=== PATIENT | female | born 1965 | race Caucasian/White ===

== ENCOUNTER 2016-06-28 19:19 | Emergency (ER) | payer BC ==
[~2016-06-28] VITALS: Ht 162.5 cm; Wt 113.4 kg
[~2016-06-28 19:19] MED LIST: ACCUNEB 0.0.63 MG/3 INH; ATIVAN1 MG PO; CATAFLAM50 MG PO; CLARITIN10 MG PO; DAYPRO600 M1 PO; FIORICET 325 MG1 TAB PO; FLEXERIL10 MG PO; FLEXERIL5 MG PO; FLONASE 0.05% 121 EA NAS; HYDRODIURIL25 MG PO; KEFLEX500 MG PO; MEDROL DOSEPAK4 MG PO; MOTRIN600 MG PO; MOTRIN800 MG PO; MUCINEX D 12001 TER PO; NKHM; PREDNICOT20 MG PO; ROBITUSSIN DM120 ML PO; TRAMADOL HCL50 MG PO; VIBRAMYCIN100 MG PO; ZYRTEC5 MG PO
[2016-06-28 19:33] VITALS: BP 177/86
[2016-06-28] MEDS ORDERED: VIBRAMYCIN100 MG PO (20:54)
[2016-06-28] MEDS ORDERED: MEDROL DOSEPAK4 MG PO (20:54)
[2016-06-28] MEDS ORDERED: VENTOLIN 02.5 MG/3 M INH (21:12)
== END 2016-06-28 21:07 | disposition home or self-care (01) ==
LOC: ED 19:19
DX: J40 Bronchitis, not specified as acute or chronic (principal); J45.909 Unspecified asthma, uncomplicated; Z88.1 Allergy status to other antibiotic agents; Z88.8 Allergy status to other drugs, medicaments and biological substances

== ENCOUNTER → 2016-08-12 | Outpatient (CLI) | payer BC ==
[~2016-08-12] MED LIST changes: +VENTOLIN 02.5 MG/3 M INH
== END | disposition home or self-care (01) ==
LOC: CARD 07-02 14:00
DX: I07.1 Rheumatic tricuspid insufficiency (principal); R01.1 Cardiac murmur, unspecified

== ENCOUNTER → 2016-08-28 | Outpatient (CLI) | payer BC | END | disposition home or self-care (01) | LOC: ORTHO 03:46 | DX: M18.9 Osteoarthritis of first carpometacarpal joint, unspecified (principal) ==

== ENCOUNTER 2017-02-04 23:23 | Emergency (ER) | payer OTHER ==
[~2017-02-04] VITALS: Ht 162.5 cm; Wt 111.1 kg
[~2017-02-04 23:23] MED LIST changes: +AUGMENTIN 875875 MG PO; +FEXOFENADINE-P1 EACH PO; +PREDNISONE20 M1 PO; +PROVENTIL HFA6.7 GM INH
[2017-02-04 23:29] VITALS: BP 151/87
== END 2017-02-05 00:29 | disposition home or self-care (01) ==
LOC: ED 23:23
DX: J01.90 Acute sinusitis, unspecified (principal); J40 Bronchitis, not specified as acute or chronic; Z88.1 Allergy status to other antibiotic agents; Z88.8 Allergy status to other drugs, medicaments and biological substances

== ENCOUNTER → 2017-02-26 | Outpatient (CLI) | payer OTHER ==
[2017-02-26 07:27] LABS: BASO % 0.4 % (0.0-1.0); EOS # 0.4 10*3/uL (0.0-0.4); EOS % 4.2 % (1.0-4.0); HEMATOCRIT 44.6 % (37.0-47.0); HEMOGLOBIN 14.8 g/dl (12.0-16.0); LYMPH # 2.4 10*3/uL (1.3-4.4); LYMPH % 26.7 % (27.0-41.0); MEAN CELL VOLUME 86.4 fl (81.0-99.0); MEAN CORPUSCULAR HGB 28.7 pg (27.0-31.0); MEAN CORPUSCULAR HGB CONC 33.2 g/dl (33.0-37.0); MEAN PLATELET VOLUME 9.5 fl (9.6-12.3); MONO # 0.6 10*3/uL (0.1-1.0); NEUT # 5.5 10*3/uL (2.3-7.9); NEUT % 61.3 % (47.0-73.0); PLATELET COUNT AUTOMATED 355 10*3/uL (130-400); RED BLOOD COUNT 5.16 10*6/uL (4.10-5.10); RED CELL DISTRI WIDTH 13.8 % (0-14.5); WHITE BLOOD COUNT 8.9 10*3/uL (4.8-10.8)
[2017-02-26 08:06] LABS: ALBUMIN 3.2 gm/dl (3.1-4.5); BUN 11 mg/dl (7-24); CHLORIDE 107 mmol/L (98-107); CHOLESTEROL 191 mg/dL (<200); CREATININE 0.71 mg/dL (0.55-1.02); POTASSIUM 4.2 mmol/L (3.5-5.1); SGOT/AST 16 IU/L (3-35); SGPT/ALT 21 U/L (12-78); SODIUM 140 mmol/L (136-145); T3 UPTAKE 34 % (31-39); TOTAL PROTEIN 7.4 gm/dL (6.4-8.2); TRIGLYCERIDES 113 mg/dl (<150); VLDL CHOLESTEROL 23 mg/dL (6-40)
[2017-02-26 08:14] LABS: ALKALINE PHOSPHATASE 90 U/L (45-117); HDL CHOLESTEROL 49 mg/dl (40-60); LDL CHOLESTEROL 119 mg/dL (9-159)
[2017-02-26 09:48] LABS: VITAMIN D, 25-HYDROXY 37.4 ng/mL (30-100)
== END ==
LOC: LAB 06:31
PROVIDERS: Internal Medicine
DX: R63.5 Abnormal weight gain (principal)

== ENCOUNTER → 2017-03-05 | Outpatient (CLI) | payer OTHER ==
[~2017-03-05] MED LIST changes: +NAPROSYN500 MG PO; +VITAMIN D50000 UNIT PO
--- NOTE | 2017-03-05 08:03 | NUR ---
INFORMED SIGNED CONSENT OBTAINED FOR CARDIOLITE RACHEL STRESS TEST WITH DR QUEVEDO. RESTING EKG NSR WITH RARE PVC HR 63 BP 124/88 IN SUPINE POSITION, STANDING HR 65 BP 130/86. PT COMPLETED 5:21 OF A RACHEL PROTOCOL WITH PT COMPLETING 2:21 OF STAGE II AT 2.5 MPH AND A 12% GRADE. PT REACHED A PEAK HR OF 168 WHICH REPRESENTS 98% OF PREDICTED MAXIMUM AND A PEAK BP OF 168/84. NO ARRHYTHMIAS, ST DEPRESSION IN II III AND AVF. TEST TERMINATED DUE TO FATIGUE AND SOB. LAST HR OF 85 BP 128/82. PT IN STABLE CONDITON, AWAITING NUCLEAR IMAGES.
== END | disposition home or self-care (01) ==
LOC: CARD 02:06
DX: R07.9 Chest pain, unspecified (principal); R06.02 Shortness of breath

== ENCOUNTER → 2017-04-14 | Outpatient (CLI) | payer OTHER | END | disposition home or self-care (01) | LOC: ORTHO 03:32 | DX: M17.12 Unilateral primary osteoarthritis, left knee (principal); S82.492A Other fracture of shaft of left fibula, initial encounter for closed fracture; X58.XXXA Exposure to other specified factors, initial encounter; Y93.89 Activity, other specified; Y92.89 Other specified places as the place of occurrence of the external cause; Y99.8 Other external cause status ==

== ENCOUNTER 2017-05-18 12:19 | Emergency (ER) | payer OTHER ==
[~2017-05-18] VITALS: Ht 162.5 cm; Wt 113.4 kg
[2017-05-18 12:28] VITALS: BP 139/82
[2017-05-18] MEDS ORDERED: CELEBREX100 MG PO (12:29)
[2017-05-18 13:28] LABS: BASO % 0.3 % (0.0-1.0); EOS # 0.1 10*3/uL (0.0-0.4); EOS % 0.8 % (1.0-4.0); HEMATOCRIT 45.7 % (37.0-47.0); HEMOGLOBIN 15.3 g/dl (12.0-16.0); LYMPH # 0.5 10*3/uL (1.3-4.4); LYMPH % 4.4 % (27.0-41.0); MEAN CELL VOLUME 85.6 fl (81.0-99.0); MEAN CORPUSCULAR HGB 28.7 pg (27.0-31.0); MEAN CORPUSCULAR HGB CONC 33.5 g/dl (33.0-37.0); MEAN PLATELET VOLUME 9.5 fl (9.6-12.3); MONO # 0.5 10*3/uL (0.1-1.0); MONO % 4.7 % (3.0-9.0); NEUT # 9.3 10*3/uL (2.3-7.9); NEUT % 89.2 % (47.0-73.0); PLATELET COUNT AUTOMATED 339 10*3/uL (130-400); RED BLOOD COUNT 5.34 10*6/uL (4.10-5.10); RED CELL DISTRI WIDTH 13.5 % (0-14.5); WHITE BLOOD COUNT 10.4 10*3/uL (4.8-10.8)
[2017-05-18 13:45] LABS: ALBUMIN 3.1 gm/dl (3.1-4.5); ALKALINE PHOSPHATASE 109 U/L (45-117); BUN 15 mg/dl (7-24); CHLORIDE 104 mmol/L (98-107); CREATININE 0.73 mg/dL (0.55-1.02); POTASSIUM 4.4 mmol/L (3.5-5.1); SGOT/AST 19 IU/L (3-35); SGPT/ALT 23 U/L (12-78); SODIUM 138 mmol/L (136-145); TOTAL PROTEIN 7.7 gm/dL (6.4-8.2)
[2017-05-18] MEDS ORDERED: PREDNISONE20 M1 PO (13:51)
[2017-05-18] MEDS ORDERED: ROBITUSSIN DM 105 ML PO (13:51)
[2017-05-18] MEDS ORDERED: FLONASE ALLERG9.9 ML NAS (13:51)
== END 2017-05-18 14:05 | disposition home or self-care (01) ==
LOC: ED 12:19
PROVIDERS: Nurse Practitioner Family
DX: B34.9 Viral infection, unspecified (principal); Z88.1 Allergy status to other antibiotic agents; Z88.8 Allergy status to other drugs, medicaments and biological substances; Z79.899 Other long term (current) drug therapy

== ENCOUNTER → 2017-05-28 | Outpatient (CLI) | payer OTHER ==
[~2017-05-28] MED LIST changes: +CELEBREX100 MG PO; +FLONASE ALLERG9.9 ML NAS; +ROBITUSSIN DM 105 ML PO
== END | disposition home or self-care (01) ==
LOC: ORTHO 02:33
DX: M17.11 Unilateral primary osteoarthritis, right knee (principal)

== ENCOUNTER → 2017-06-09 | Outpatient (CLI) | payer OTHER | END | disposition home or self-care (01) | LOC: MRI 02:08 | DX: S83.242A Other tear of medial meniscus, current injury, left knee, initial encounter (principal); S83.412A Sprain of medial collateral ligament of left knee, initial encounter; M25.462 Effusion, left knee; X58.XXXA Exposure to other specified factors, initial encounter; Y93.89 Activity, other specified; Y92.89 Other specified places as the place of occurrence of the external cause; Y99.8 Other external cause status ==

== ENCOUNTER 2017-07-12 19:16 | Emergency (ER) | payer OTHER ==
[~2017-07-12] VITALS: Ht 162.5 cm; Wt 113.4 kg
[2017-07-12 19:20] VITALS: BP 148/92
[2017-07-12 19:45] LABS: BILIRUBIN NEGATIVE (NEGATIVE); BLOOD 3+ (NEGATIVE); CLARITY SL CLOUDY (CLEAR); COLOR YELLOW (YELLOW); GLUCOSE NEGATIVE (NEGATIVE); KETONE NEGATIVE (NEGATIVE); LEUKO ESTERASE 2+ (NEGATIVE); NITRITE POSITIVE (NEGATIVE); PH 5.5 (5.0-9.0); SPECIFIC GRAVITY 1.015 (1.005-1.030); UROBILINOGEN 0.2 E.U./dl (0.2-1.0)
[2017-07-12 19:55] LABS: BACTERIA 2+; WBC 31-40 wbc/hpf (0-5)
[2017-07-12] MEDS ORDERED: SEPTDS PO (20:10)
== END 2017-07-12 20:18 | disposition home or self-care (01) ==
LOC: ED 19:16
PROVIDERS: Physician Assistant
DX: N39.0 Urinary tract infection, site not specified (principal); R31.9 Hematuria, unspecified; Z90.710 Acquired absence of both cervix and uterus; Z98.890 Other specified postprocedural states; Z88.1 Allergy status to other antibiotic agents; Z88.8 Allergy status to other drugs, medicaments and biological substances; Z79.899 Other long term (current) drug therapy

== ENCOUNTER 2017-07-14 08:09 | Inpatient (IN) | payer OTHER ==
[~2017-07-14] VITALS: Ht 162.5 cm; Wt 110.4 kg
--- NOTE | ~2017-07-14 | WRIGHTHP ---
[place], [place] PATIENT HISTORY AND PHYSICAL EXAM NAME: [facility] #: [id number] UNIT #: [id number] ROOM: 516 DOCTOR: CHETNA QUEVEDO MD BIRTHDATE: [birth year] DOS: 07/14/2017 HISTORY OF PRESENT ILLNESS: The patient is 52 years old. The patient is very well known to us. She says she has had back pain and not feeling good for the last few days. She went to the Emergency Room on the and she said she was not feeling good and she was just given Bactrim for possibility of UTI. No blood work was drawn. She started taking the Bactrim on Friday. She was at work when she became dizzy and had a syncopal episode, was taken back to the Emergency Room. At this time, routine blood work was ordered and she was found to have a white cell count of 26,000 and so she was admitted with acute kidney injury and she was admitted with diagnosis of possible sepsis and UTI from. The patient denies having any chest pains or palpitations, does not have any fever or chills, does not have any abdominal pain. She does have some back pain this morning, did sleep well during the night. PAST MEDICAL HISTORY: Significant for multiple UTIs in the past. MEDICATIONS: Flonase nasal spray. She was also on prednisone and albuterol p.r.n. and Robitussin through the ER during her last visit from the . SOCIAL HISTORY: Nonsmoker, does not use any alcohol. She lives at home alone. PHYSICAL EXAMINATION: GENERAL: She is awake and alert and oriented. VITAL SIGNS: Graphic trend shows a pressure of 122/72, pulse of 78, respirations 20, temperature 98.6. LUNGS: Diminished breath sounds, clear. HEART: Regular. ABDOMEN: Soft. EXTREMITIES: Without any edema. Evidence of tenderness of the left CV angle. ASSESSMENT AND PLAN: 1. The patient with acute kidney injury caused from urinary tract infection, on intravenous fluids. 2. Syncopal episode from hypotension. 3. Escherichia coli in the urine. The patient was on Bactrim. The bacteria was resistant to the Bactrim, so the patient has been placed on Levaquin and Zosyn and the white cell count has come down to 20,000. 4. Valvular heart disease noted on exam today. Echocardiogram will be ordered. [place], [place] PATIENT HISTORY AND PHYSICAL EXAM [id number] UNIT #: [id number] ROOM: [facility] DOCTOR: CHETNA QUEVEDO MD BIRTHDATE: [birth year] CHETNA QUEVEDO MD CM:HISPHYS:PATIENT HISTORY AND PHYSICAL EXAMINATION 9 CHETNA QUEVEDO MD 07/15/17 0853 interface
--- NOTE | ~2017-07-14 | PR ---
[place], [place] PROGRESS NOTE NAME: [facility]WABENA BELL [facility] #: [id number] UNIT #: [id number] ROOM: 516 DOCTOR: CHETNA QUEVEDO MD BIRTHDATE: [birth year] DOS: SUBJECTIVE: The patient complains of back pain, otherwise feels okay. OBJECTIVE: VITAL SIGNS: Graphic trend shows a pressure of 101/55, pulse of 75, respirations 20, temperature 98.3. LUNGS: Diminished breath sounds, clear. HEART: Regular with systolic murmur heard in the second space. ABDOMEN: Obese, soft. EXTREMITIES: Without any edema. BACK: Some tenderness across the lower part of the back. LABORATORY DATA: Blood culture shows no bacterial growth. ASSESSMENT AND PLAN: 1. Acute pyelonephritis with Escherichia coli of the urine on IV antibiotics, improvement clinically. 2. Acute kidney injury, which is possibly from acute tubular necrosis from the infection. This has corrected. 3. Abnormal liver enzymes. This definitely has improved over the last couple of days, but the patient is advised this could be hepatic steatosis causing LFT abnormalities. CT of the abdomen and pelvis did not show any abnormalities of the liver. So the plan is to continue following that as an outpatient. The patient is advised to not take any nonsteroidals for right now and Tylenol for pain control, ____. 4. Valvular heart disease. The patient's echocardiogram did show mild mitral regurgitation, which will continue to be followed up as an outpatient. The patient is stable and can be discharged to home today. He is advised to come back to work sometime next week. CHETNA QUEVEDO MD CM:PNTRANS 3 4 CHETNA QUEVEDO MD 07/17/17923 interface
--- NOTE | ~2017-07-14 | PR ---
[place], [place] PROGRESS NOTE NAME: KWABENA BELL [facility] #: [id number] UNIT #: [id number] ROOM: 516 DOCTOR: CHETNA QUEVEDO MD BIRTHDATE: [birth year] DOS: SUBJECTIVE: The patient is not having any complaints today. OBJECTIVE: VITAL SIGNS: Graphic trend shows pressure 112/62, pulse of 70, respirations 20, temperature 98.1. LUNGS: Diminished breath sounds, clear. HEART: Regular. ABDOMEN: Soft. EXTREMITIES: Without any edema. Some tenderness noticed in the costovertebral angles bilaterally. LABORATORY DATA: Echocardiogram showed no pericardial effusion, shows the left ventricular diastolic function was normal. Systolic function was normal. Tricuspid valve is normal. Pulmonary valve is normal. Aortic root is normal. Mitral regurg, trace to mild was noted. ASSESSMENT AND PLAN: 1. Pyelonephritis, acute. The patient is on IV antibiotics. 2. Acute kidney injury, resolved. Discontinue IV fluids. 3. Escherichia coli in the urine. Already on IV Levaquin. CHETNA QUEVEDO MD CM:PNTRANS [id number] CHETAN QUEVEDO MD 07/16/17 1015 interface
--- NOTE | ~2017-07-14 | DS ---
[place], [place] DISCHARGE SUMMARY NAME: KWABENA BELL [facility] #: [id number] UNIT #: [id number] ROOM: 516 DOCTOR: CHETNA QUEVEDO MD BIRTHDATE: [birth year] DOS: 07/17/2017 HOSPITAL COURSE: The patient is 52 years old. The patient is very well known to us. The patient was seen in the Emergency Room on the , was started on Bactrim for a possible UTI and on , she became dizzy while at work, developed a syncopal episode and was admitted to the hospital. After being evaluated in the ER, she was admitted with an elevated white cell count and possible sepsis. The patient was admitted, was placed on IV fluids, IV antibiotics. Urine culture, blood cultures were done. Urine culture showed E. coli, which is resistant to Bactrim. Blood culture did not show any bacterial growth. CT of the abdomen showed acute pyelonephritis and the patient is clinically much improved with WBC count improving to 12,000. She also had abnormal LFTs, possibly from the sepsis, which is also correcting. Acute kidney injury from ATN was noted in the beginning, this is also corrected. The patient is stable this morning and will be discharged to home. The discharge medications will be Cipro 500 mg twice a day for 7 days. On examination, the patient seems to have a systolic murmur along the sternal border as echocardiogram was ordered, which showed mild mitral regurgitation, which will be followed up as an outpatient. CHETNA QUEVEDO MD CM:DISCHARG [id number] CHETNA QUEVEDO MD 07/17/17 0942 interface
[~2017-07-14 08:09] MED LIST changes: +SEPTDS PO
[2017-07-14 08:12] VITALS: BP 145/87
[2017-07-14] MEDS ORDERED: CONTRAVE ER 8-1 EACH PO (08:14)
[2017-07-14 09:11] LABS: HEMATOCRIT 44.3 % (37.0-47.0); HEMOGLOBIN 15.2 g/dl (12.0-16.0); MEAN CELL VOLUME 82.6 fl (81.0-99.0); MEAN CORPUSCULAR HGB 28.4 pg (27.0-31.0); MEAN CORPUSCULAR HGB CONC 34.3 g/dl (33.0-37.0); MEAN PLATELET VOLUME 10.3 fl (9.6-12.3); PLATELET COUNT AUTOMATED 298 10*3/uL (130-400); RED BLOOD COUNT 5.36 10*6/uL (4.10-5.10); RED CELL DISTRI WIDTH 13.9 % (0-14.5); WHITE BLOOD COUNT 26.3 10*3/uL (4.8-10.8)
[2017-07-14 09:25] LABS: ACT PARTIAL THROMBO TIME 27.2 SECONDS (20.8-31.5); INTERNATIONAL NORM RATIO 1.1 (2.0-3.5)
[2017-07-14 09:26] LABS: ALBUMIN 2.4 gm/dl (3.1-4.5); ALKALINE PHOSPHATASE 300 U/L (45-117); BUN 18 mg/dl (7-24); CHLORIDE 94 mmol/L (98-107); CREATININE 1.31 mg/dL (0.55-1.02); LIPASE 229 U/L (73-393); POTASSIUM 4.2 mmol/L (3.5-5.1); SGOT/AST 82 IU/L (3-35); SGPT/ALT 107 U/L (12-78); SODIUM 128 mmol/L (136-145); TOTAL PROTEIN 7.9 gm/dL (6.4-8.2)
[2017-07-14 09:30] LABS: ATYPICAL LYMPHS 1 % (0-0); PLATELET SUFFICIENCY NORMAL (NORMAL); TOTAL CELLS COUNTED 100 #CELLS
[2017-07-14 09:32] LABS: TROPONIN I < 0.015 ng/ml (<0.045)
[2017-07-14 10:36] VITALS: BP 141/78
[2017-07-14 10:50] VITALS: BP 131/79
[2017-07-14 11:56] LABS: BILIRUBIN NEGATIVE (NEGATIVE); BLOOD 2+ (NEGATIVE); CLARITY SL CLOUDY (CLEAR); COLOR YELLOW (YELLOW); GLUCOSE NEGATIVE (NEGATIVE); KETONE NEGATIVE (NEGATIVE); LEUKO ESTERASE NEGATIVE (NEGATIVE); NITRITE NEGATIVE (NEGATIVE); SPECIFIC GRAVITY <= 1.005 (1.005-1.030)
[2017-07-14 12:08] LABS: BACTERIA 1+
[2017-07-14 16:00] VITALS: BP 123/62
[2017-07-14 20:00] VITALS: BP 122/58
[2017-07-15] VITALS: BP 117/65
[2017-07-15 06:52] LABS: HEMATOCRIT 39.2 % (37.0-47.0); MEAN CELL VOLUME 85.4 fl (81.0-99.0); MEAN CORPUSCULAR HGB 28.3 pg (27.0-31.0); MEAN CORPUSCULAR HGB CONC 33.2 g/dl (33.0-37.0); MEAN PLATELET VOLUME 10.4 fl (9.6-12.3); PLATELET COUNT AUTOMATED 264 10*3/uL (130-400); RED BLOOD COUNT 4.59 10*6/uL (4.10-5.10); RED CELL DISTRI WIDTH 14.3 % (0-14.5); WHITE BLOOD COUNT 20.9 10*3/uL (4.8-10.8)
[2017-07-15 07:21] LABS: BUN 14 mg/dl (7-24); CHLORIDE 102 mmol/L (98-107); CREATININE 0.94 mg/dL (0.55-1.02); SGOT/AST 69 IU/L (3-35); SGPT/ALT 97 U/L (12-78); SODIUM 133 mmol/L (136-145)
[2017-07-15 07:23] LABS: ALKALINE PHOSPHATASE 287 U/L (45-117); TOTAL PROTEIN 6.7 gm/dL (6.4-8.2)
[2017-07-15 08:00] VITALS: BP 122/72
[2017-07-15 08:05] LABS: BASOPHILS 1 % (0-1); PLATELET SUFFICIENCY NORMAL (NORMAL); TOTAL CELLS COUNTED 100 #CELLS
[2017-07-15 11:29] VITALS: BP 104/65
[2017-07-15 16:00] VITALS: BP 112/76
[2017-07-15 20:00] VITALS: BP 134/57
[2017-07-16] VITALS: BP 134/55
[2017-07-16 06:44] LABS: HEMATOCRIT 37.8 % (37.0-47.0); HEMOGLOBIN 12.1 g/dl (12.0-16.0); MEAN CELL VOLUME 87.3 fl (81.0-99.0); MEAN CORPUSCULAR HGB 27.9 pg (27.0-31.0); MEAN PLATELET VOLUME 10.4 fl (9.6-12.3); PLATELET COUNT AUTOMATED 288 10*3/uL (130-400); RED BLOOD COUNT 4.33 10*6/uL (4.10-5.10); RED CELL DISTRI WIDTH 14.6 % (0-14.5); WHITE BLOOD COUNT 12.8 10*3/uL (4.8-10.8)
[2017-07-16 06:45] LABS: ALBUMIN 1.8 gm/dl (3.1-4.5); ALKALINE PHOSPHATASE 250 U/L (45-117); BUN 10 mg/dl (7-24); CHLORIDE 106 mmol/L (98-107); CREATININE 0.85 mg/dL (0.55-1.02); POTASSIUM 3.9 mmol/L (3.5-5.1); SGOT/AST 40 IU/L (3-35); SGPT/ALT 79 U/L (12-78); SODIUM 140 mmol/L (136-145); TOTAL PROTEIN 6.3 gm/dL (6.4-8.2)
[2017-07-16 07:19] LABS: ATYPICAL LYMPHS 1 % (0-0); BASOPHILS 1 % (0-1); BURR CELLS FEW; PLATELET SUFFICIENCY NORMAL (NORMAL); TOTAL CELLS COUNTED 100 #CELLS
[2017-07-16 08:00] VITALS: BP 112/62
[2017-07-16 11:57] VITALS: BP 92/56
[2017-07-16 15:56] VITALS: BP 125/67
[2017-07-16 20:00] VITALS: BP 118/55
[2017-07-17] VITALS: BP 101/55
[2017-07-17 07:47] LABS: BUN 7 mg/dl (7-24); CHLORIDE 106 mmol/L (98-107); POTASSIUM 4.1 mmol/L (3.5-5.1); SODIUM 141 mmol/L (136-145)
[2017-07-17 08:00] VITALS: BP 123/70
[2017-07-17 08:17] LABS: CREATININE 0.72 mg/dL (0.55-1.02)
[2017-07-17] MEDS ORDERED: CIPRO500 MG PO (08:26)
== END 2017-07-17 13:00 | disposition home or self-care (01) | DRG 871 ==
LOC: ED 08:09 → 5E 10:05 → EDHOLD 10:05 → 5E 10:14
PROVIDERS: Emergency Medicine; Internal Medicine
DX: A41.9 Sepsis, unspecified organism (principal); N17.0 Acute kidney failure with tubular necrosis; N10 Acute pyelonephritis; I95.9 Hypotension, unspecified; B96.20 Unspecified Escherichia coli [E. coli] as the cause of diseases classified elsewhere; Z16.39 Resistance to other specified antimicrobial drug; I34.0 Nonrheumatic mitral (valve) insufficiency; R74.8 Abnormal levels of other serum enzymes; E86.0 Dehydration; Z88.8 Allergy status to other drugs, medicaments and biological substances; Z88.1 Allergy status to other antibiotic agents; Z79.899 Other long term (current) drug therapy; Z98.891 History of uterine scar from previous surgery; Z90.710 Acquired absence of both cervix and uterus; Z80.8 Family history of malignant neoplasm of other organs or systems; Z82.49 Family history of ischemic heart disease and other diseases of the circulatory system; Z82.61 Family history of arthritis; Z82.62 Family history of osteoporosis

== ENCOUNTER → 2017-08-05 | Outpatient (CLI) | payer OTHER ==
[~2017-08-05] MED LIST changes: +CIPRO500 MG PO; +CONTRAVE ER 8-1 EACH PO
[2017-08-05 09:18] LABS: BILIRUBIN NEGATIVE (NEGATIVE); BLOOD NEGATIVE (NEGATIVE); CLARITY CLEAR (CLEAR); COLOR YELLOW (YELLOW); GLUCOSE NEGATIVE (NEGATIVE); KETONE NEGATIVE (NEGATIVE); LEUKO ESTERASE TRACE (NEGATIVE); NITRITE NEGATIVE (NEGATIVE); UROBILINOGEN 0.2 E.U./dl (0.2-1.0)
[2017-08-05 09:22] LABS: BASO # 0.1 10*3/uL (0.0-0.1); BASO % 0.6 % (0.0-1.0); EOS # 0.2 10*3/uL (0.0-0.4); EOS % 1.8 % (1.0-4.0); HEMATOCRIT 45.2 % (37.0-47.0); HEMOGLOBIN 14.6 g/dl (12.0-16.0); LYMPH # 2.2 10*3/uL (1.3-4.4); LYMPH % 21.1 % (27.0-41.0); MEAN CELL VOLUME 88.3 fl (81.0-99.0); MEAN CORPUSCULAR HGB 28.5 pg (27.0-31.0); MEAN CORPUSCULAR HGB CONC 32.3 g/dl (33.0-37.0); MEAN PLATELET VOLUME 9.4 fl (9.6-12.3); MONO # 0.8 10*3/uL (0.1-1.0); MONO % 7.5 % (3.0-9.0); NEUT % 68.5 % (47.0-73.0); PLATELET COUNT AUTOMATED 408 10*3/uL (130-400); RED BLOOD COUNT 5.12 10*6/uL (4.10-5.10); RED CELL DISTRI WIDTH 14.2 % (0-14.5); WHITE BLOOD COUNT 10.2 10*3/uL (4.8-10.8)
[2017-08-05 09:41] LABS: BACTERIA TRACE; MUCOUS TRACE
[2017-08-05 09:42] LABS: ALBUMIN 3.2 gm/dl (3.1-4.5); ALKALINE PHOSPHATASE 123 U/L (45-117); BUN 14 mg/dl (7-24); CHLORIDE 104 mmol/L (98-107); CREATININE 0.91 mg/dL (0.55-1.02); POTASSIUM 4.4 mmol/L (3.5-5.1); SGOT/AST 13 IU/L (3-35); SGPT/ALT 16 U/L (12-78); SODIUM 142 mmol/L (136-145); TOTAL PROTEIN 8.2 gm/dL (6.4-8.2)
== END | disposition home or self-care (01) ==
LOC: LAB 08:54
PROVIDERS: Internal Medicine
DX: M54.9 Dorsalgia, unspecified (principal); A41.9 Sepsis, unspecified organism

== ENCOUNTER → 2019-05-03 | Outpatient (CLI) | payer BC ==
[2019-05-03 08:33] LABS: BASO # 0.1 10*3/uL (0.0-0.1); BASO % 0.8 % (0.0-1.0); EOS # 0.3 10*3/uL (0.0-0.4); HEMATOCRIT 46.8 % (37.0-47.0); LYMPH # 2.1 10*3/uL (1.3-4.4); LYMPH % 24.5 % (27.0-41.0); MEAN CELL VOLUME 88.5 fl (81.0-99.0); MEAN CORPUSCULAR HGB 28.4 pg (27.0-31.0); MEAN CORPUSCULAR HGB CONC 32.1 g/dl (33.0-37.0); MEAN PLATELET VOLUME 9.4 fl (9.6-12.3); MONO # 0.8 10*3/uL (0.1-1.0); MONO % 9.5 % (3.0-9.0); NEUT # 5.2 10*3/uL (2.3-7.9); NEUT % 61.8 % (47.0-73.0); PLATELET COUNT AUTOMATED 375 10*3/uL (130-400); RED BLOOD COUNT 5.29 10*6/uL (4.10-5.10); RED CELL DISTRI WIDTH 13.4 % (0-14.5); WHITE BLOOD COUNT 8.5 10*3/uL (4.8-10.8)
[2019-05-03 09:05] LABS: ALBUMIN 3.2 gm/dl (3.1-4.5); ALKALINE PHOSPHATASE 108 U/L (45-117); BUN 15 mg/dl (7-24); CHLORIDE 110 mmol/L (98-107); CHOLESTEROL 183 mg/dL (<200); CREATININE 0.79 mg/dL (0.55-1.02); FREE T4 1.08 ng/dl (0.76-1.46); HDL CHOLESTEROL 42 mg/dl (40-60); LDL CHOLESTEROL 115 mg/dL (9-159); POTASSIUM 4.1 mmol/L (3.5-5.1); SGOT/AST 17 IU/L (3-35); SGPT/ALT 28 U/L (12-78); SODIUM 142 mmol/L (136-145); TOTAL PROTEIN 7.5 gm/dL (6.4-8.2); TRIGLYCERIDES 130 mg/dl (<150); VLDL CHOLESTEROL 26 mg/dL (6-40)
[2019-05-03 10:07] LABS: VITAMIN D, 25-HYDROXY 29.2 ng/mL (30-100)
== END | disposition home or self-care (01) ==
LOC: LAB 07:56
PROVIDERS: Internal Medicine
DX: Z13.21 Encounter for screening for nutritional disorder (principal); Z13.220 Encounter for screening for lipoid disorders; E55.9 Vitamin D deficiency, unspecified

== ENCOUNTER → 2021-07-19 | Outpatient (CLI) | payer BC ==
[2021-07-19 08:21] LABS: BASO # 0.1 10*3/uL (0.0-0.1); BASO % 0.5 % (0.0-1.0); EOS # 0.3 10*3/uL (0.0-0.4); EOS % 3.1 % (1.0-4.0); HEMATOCRIT 47.5 % (37.0-47.0); LYMPH # 2.6 10*3/uL (1.3-4.4); LYMPH % 28.6 % (27.0-41.0); MEAN CELL VOLUME 86.5 fl (81.0-99.0); MEAN CORPUSCULAR HGB 28.8 pg (27.0-31.0); MEAN CORPUSCULAR HGB CONC 33.3 g/dl (33.0-37.0); MEAN PLATELET VOLUME 9.3 fl (9.6-12.3); MONO # 1.1 10*3/uL (0.1-1.0); MONO % 12.2 % (3.0-9.0); NEUT # 5.1 10*3/uL (2.3-7.9); NEUT % 55.2 % (47.0-73.0); PLATELET COUNT AUTOMATED 372 10*3/uL (130-400); RED BLOOD COUNT 5.49 10*6/uL (4.10-5.10); WHITE BLOOD COUNT 9.2 10*3/uL (4.8-10.8)
[2021-07-19 08:49] LABS: ALKALINE PHOSPHATASE 102 U/L (45-117); BUN 21 mg/dl (7-24); CHLORIDE 107 mmol/L (98-107); CHOLESTEROL 227 mg/dL (<200); CREATININE 0.94 mg/dL (0.55-1.02); FREE T4 1.14 ng/dl (0.76-1.46); LDL CHOLESTEROL 152 mg/dL (9-159); SGOT/AST 17 IU/L (3-35); SGPT/ALT 16 U/L (12-78); SODIUM 140 mmol/L (136-145); TOTAL PROTEIN 7.7 gm/dL (6.4-8.2); TRIGLYCERIDES 147 mg/dl (<150)
[2021-07-19 10:01] LABS: VITAMIN D, 25-HYDROXY 32.7 ng/mL (30-100)
== END | disposition home or self-care (01) ==
LOC: LAB 00:14
PROVIDERS: ATTEND Internal Medicine
DX: J45.30 Mild persistent asthma, uncomplicated (principal); M15.0 Primary generalized (osteo)arthritis

== ENCOUNTER 2023-12-28 09:18 | Emergency (ER) | payer SELFPAY ==
[~2023-12-28] VITALS: Ht 162.5 cm; Wt 113.4 kg
[2023-12-28 09:44] VITALS: BP 158/96
[2023-12-28 10:12] LABS: BASO # 0.1 10*3/uL (0.0-0.1); BASO % 0.6 % (0.0-1.0); EOS # 0.4 10*3/uL (0.0-0.4); EOS % 4.1 % (1.0-4.0); HEMATOCRIT 45.5 % (37.0-47.0); LYMPH # 1.7 10*3/uL (1.3-4.4); LYMPH % 17.9 % (27.0-41.0); MEAN CELL VOLUME 90.1 fl (81.0-99.0); MEAN CORPUSCULAR HGB 29.3 pg (27.0-31.0); MEAN CORPUSCULAR HGB CONC 32.5 g/dl (33.0-37.0); MEAN PLATELET VOLUME 9.6 fl (9.6-12.3); MONO # 0.8 10*3/uL (0.1-1.0); MONO % 8.5 % (3.0-9.0); NEUT # 6.5 10*3/uL (2.3-7.9); NEUT % 68.5 % (47.0-73.0); PLATELET COUNT AUTOMATED 362 10*3/uL (130-400); RED BLOOD COUNT 5.05 10*6/uL (4.10-5.10); RED CELL DISTRI WIDTH 13.5 % (0-14.5); WHITE BLOOD COUNT 9.5 10*3/uL (4.8-10.8)
[2023-12-28 10:33] LABS: BUN 13 mg/dl (9-23); CHLORIDE 107 mmol/L (98-107); POTASSIUM 4.2 mmol/L (3.4-5.1)
== END 2023-12-28 11:27 | disposition home or self-care (01) ==
LOC: ED 09:18
PROVIDERS: Internal Medicine
DX: I10 Essential (primary) hypertension (principal); J45.909 Unspecified asthma, uncomplicated; G43.909 Migraine, unspecified, not intractable, without status migrainosus; F32.A Depression, unspecified; Z88.1 Allergy status to other antibiotic agents; Z88.8 Allergy status to other drugs, medicaments and biological substances; Z90.710 Acquired absence of both cervix and uterus; Z98.890 Other specified postprocedural states

== ENCOUNTER → 2024-10-28 | Outpatient (CLI) | payer BC ==
[2024-10-28 09:01] LABS: BASO # 0.1 10*3/uL (0.0-0.1); BASO % 0.7 % (0.0-1.0); EOS # 0.3 10*3/uL (0.0-0.4); EOS % 3.5 % (1.0-4.0); MEAN CELL VOLUME 90.9 fl (81.0-99.0); MEAN CORPUSCULAR HGB 29.1 pg (27.0-31.0); MEAN PLATELET VOLUME 9.0 fl (9.6-12.3); MONO # 0.8 10*3/uL (0.1-1.0); MONO % 8.3 % (3.0-9.0); NEUT # 6.9 10*3/uL (2.3-7.9); NEUT % 70.8 % (47.0-73.0); NUCLEATED RED BLOOD CELL 0.0 % (0.0-0.0); NUCLEATED RED BLOOD CELL 0.0 10*3/uL (0.0-0.0); PLATELET COUNT AUTOMATED 353 10*3/uL (130-400); RED CELL DISTRI WIDTH 13.2 % (0-14.5)
[2024-10-28 09:29] LABS: BUN 11 mg/dl (9-23); FREE T4 1.36 ng/dl (0.89-1.76); LDL CHOLESTEROL 122 mg/dL (9-159); SGPT/ALT 15 U/L (5-49)
[2024-10-28 10:21] LABS: VITAMIN D, 25-HYDROXY 39.9 ng/mL (30-100)
== END | disposition home or self-care (01) ==
LOC: LAB 08:41
PROVIDERS: ATTEND Internal Medicine
DX: I10 Essential (primary) hypertension (principal); E53.9 Vitamin B deficiency, unspecified; E55.9 Vitamin D deficiency, unspecified; R53.83 Other fatigue